=== PATIENT | male | born 1970 | race Asian ===

== ENCOUNTER 2019-05-30 22:18 | Emergency (ER) | payer OTHER ==
[2019-05-30 22:22] VITALS: BP 121/74; PULSE 100; TEMP 98.5; BMI 29.9
[2019-05-30] MEDS ORDERED: SODIUM CHLORIDE 1,000 ML IV STA ×2 (22:27→23:18)
--- NOTE | 2019-05-30 22:46 | PDOC ---
Documentation entered by Lara Rodas SCRIBE, acting as scribe for Cayetano Arellano MD. Cayetano Arellano MD: This documentation has been prepared by the Clark chopra Xhesika, SCRIBE, under my direction and personally reviewed by me in its entirety. I confirm that the documentation accurately reflects all work, treatment, procedures, and medical decision making performed by me. History of Present Illness - General Chief Complaint: Diarrhea Stated Complaint: DIARRHEA History Source: Patient Exam Limitations: No Limitations - History of Present Illness Initial Comments: 05/30/19 22:39 The patient is a 48 year old male, [employer] Employee, with a significant PMH of Asthma, CAD s/p 1 stent (2000), HTN, diabetes, hypercholesterolemia, [place] who presents to the emergency department for watery diarrhea x 3 days. Patient notes he went to [facility] [place] on [place] and was told to drink fluids. Patient notes his diarrhea is worse in the evening, and is associated with gassy stomach and belching. Patient notes he has been drinking a lot of fluids and only had chicken noodle soup today. Patient notes he has been taking imodium since the onset of his symptoms, with no relief (last taken this afternoon). Patient notes paternal family history of DM. The patient denies chest pain, shortness of breath, headache and dizziness. Denies fever, chills, cough, nausea, vomiting, and constipation. Denies dysuria , frequency, urgency and hematuria. Allergies: cefazolin Social history: Former smoker (quit 8 months ago) 05/30/19 23:40 Physical exam: Alert and oriented, well-developed well-nourished, no acute distress, cheerful and cooperative Afebrile, vital signs normal HEENT clear Neck supple without bruit mass or nodes Chest clear, full breath sounds bilaterally, no wheezes rales or rhonchi S1-S2 normal without murmur rub or gallop pulses full and symmetric no JVD or edema no bruits Abdomen nondistended. Bowel sounds normal. Soft without mass tenderness or organomegaly Extremities no CCE Skin clear, no rash, adequate turgor and wet mucous membranes Neurological intact Impression: Middle-aged man with significant past medical history including non- insulin-dependent diabetes, high blood pressure, and elevated cholesterol, has had watery diarrhea, without bloody stool or melena, x3 to 4 days. He has been drinking p.o. fluids but not eating solid foods. He has had no abdominal pain and no vomiting. Findings are consistent with a viral gastroenteritis, but probably more severe because of the patient's underlying diabetes. Plan: CBC and chemistries, IV hydration and observation. Further evaluation and treatment depending on results. Past History - Past Medical History Allergies/Adverse Reactions: Allergies Allergy/AdvReac Type Severity Reaction Status Date / Time cefazolin Allergy Verified 05/22/16 23:41 Home Medications: Ambulatory Orders Atorvastatin Ca [Lipitor] 80 mg PO DAILY 03/12/14 Acetaminophen [Tylenol] 650 mg PO QID PRN 04/08/16 Aspirin [ASA -] 81 mg PO DAILY 04/08/16 Carvedilol [Coreg -] 25 mg PO BID 04/08/16 Clopidogrel Bisulfate [Plavix -] 75 mg PO DAILY 04/08/16 metFORMIN HCL [Glucophage -] 1,000 mg PO BID 04/08/16 Glimepiride 2 mg PO DAILY #30 tablet 04/12/16 Empagliflozin [Jardiance] 10 mg PO DAILY 05/30/19 Ezetimibe 10 mg PO DAILY 05/30/19 Hydrochlorothiazide 12.5 mg PO DAILY 05/30/19 Irbesartan/Hydrochlorothiazide [Irbesartan-Hctz 300-12.5 mg Tb] 1 each PO DAILY 05/30/19 Nifedipine ER [Procardia Xl -] 90 mg PO DAILY 05/30/19 Asthma: Yes Cardiac Disorders: Yes (stent 2000) Diabetes: Yes GI Disorders: Yes (pancreatitis) HTN: Yes Hypercholesterolemia: Yes - Surgical History Cardiac Surgery: Yes (stent) - Psycho Social/Smoking Cessation Hx Smoking History: Current every day smoker Have you smoked in the past 12 months: No Number of Cigarettes Smoked Daily: 8 'Breaking Loose' booklet given: 03/12/14 Hx Alcohol Use: No Drug/Substance Use Hx: No Substance Use Type: None Hx Substance Use Treatment: No Review of Systems - Review of Systems Able to Perform ROS?: Yes Comments:: 05/30/19 22:41 GENERAL/CONSTITUTIONAL: No fever or chills. No weakness. HEAD, EYES, EARS, NOSE AND THROAT: No change in vision. No ear pain or discharge. No sore throat. CARDIOVASCULAR: No chest pain or shortness of breath. RESPIRATORY: No cough, wheezing, or hemoptysis. GASTROINTESTINAL: No nausea, vomiting, or constipation. +diarrhea. + gassy stomach. +belching. GENITOURINARY: No dysuria, frequency, or change in urination. MUSCULOSKELETAL: No joint or muscle swelling or pain. No neck or back pain. SKIN: No rash NEUROLOGIC: No headache, vertigo, loss of consciousness, or change in strength/ sensation. ENDOCRINE: No increased thirst. No abnormal weight change. HEMATOLOGIC/LYMPHATIC: No anemia, easy bleeding, or history of blood clots. ALLERGIC/IMMUNOLOGIC: No hives or skin allergy. ED Treatment Course - LABORATORY CBC & Chemistry Diagram: 05/30/19 22:38 05/30/19 22:38 Medical Decision Making - Medical Decision Making 05/30/19 23:43 Labs are significant for white count of 18.3, H&H of 16 and 47, BUN/creatinine of 22 and 1.3, and glucose of 174. The patient does not appear to be septic despite the high white count, is probably due to dehydration. His abdomen remains soft and nontender, and he has had no further diarrhea since presenting to the emergency room. 2 L of IV fluids administered. Improved, taking p.o. well, no further diarrhea , abdomen soft nontender. Discharged in no pain or other distress for close follow-up as directed. Discharge - Discharge Information Problems reviewed: Yes Clinical Impression/Diagnosis: Viral gastroenteritis Condition: Improved Disposition: HOME - Admission No - Follow up/Referral - Patient Discharge Instructions Patient Printed Discharge Instructions: DI for Viral Gastroenteritis -- Adult, DI for Diarrhea and Traveler's Diarrhea -- Adult Additional Instructions: Return to ER if symptoms are worse, especially if there is fever, abdominal pain , vomiting, lightheadedness/dizziness. Otherwise follow-up primary physician. Continue Imodium and stay well-hydrated. Light diet until diarrhea resolves. - Post Discharge Activity Work/Back to School Note: Back to Work
[2019-05-30 22:58] LABS: BASO % 0.6 % (0-2.0); EOS % 4.2 % (0-4.5); HEMATOCRIT 47.9 % (35.4-49); HEMOGLOBIN 16.1 GM/dl (11.7-16.9); LYMPH % 9.9 % (8-40); MCH 27.9 pg (25.7-33.7); MCHC 33.7 g/dl (32.0-35.9); MEAN CELL VOLUME 82.8 fl (80-96); MEAN PLT VOLUME 8.2 fl (7.5-11.1); NEUT % 79.3 % (42.8-82.8); PLATELET COUNT 356 K/MM3 (134-434); RBC 5.79 M/mm3 (4.00-5.60); RDW 13.5 % (11.9-15.9); WHITE BLOOD COUNT 18.3 K/mm3 (4.0-10.8)
[2019-05-30 23:04] LABS: ALBUMIN 4.4 g/dl (3.4-5.0); BILIRUBIN,TOTAL 1.1 mg/dl (0.2-1); CALCIUM 9.8 mg/dl (8.5-10); CREATININE 1.3 mg/dl (0.55-1.3); POTASSIUM 3.6 mmol/L (3.5-5.1); TOT PROT 7.5 g/dl (6.4-8.2)
== END 2019-05-31 00:31 | disposition home or self-care (01) ==
LOC: FER 22:18
PROC: 3E0337Z Introduction of Electrolytic and Water Balance Substance into Peripheral Vein, Percutaneous Approach (ICD-10-PCS; principal; 2019-05-30)
DX: A08.4 Viral intestinal infection, unspecified (principal); Z88.8 Allergy status to other drugs, medicaments and biological substances; J45.909 Unspecified asthma, uncomplicated; I25.10 Atherosclerotic heart disease of native coronary artery without angina pectoris; I10 Essential (primary) hypertension; E11.9 Type 2 diabetes mellitus without complications; E78.00 Pure hypercholesterolemia, unspecified; I25.2 Old myocardial infarction
CPT/HCPCS: 36415; 80053; 85025; 99283-25; J7030

== ENCOUNTER 2021-08-12 16:58 | Emergency (ER) | payer BC | END 2021-08-12 18:58 | disposition home or self-care (01) | LOC: JVIRT 16:58 | DX: Z11.52 Encounter for screening for COVID-19 (principal) | CPT/HCPCS: 87804; C9803; Q3014-GT; U0003; U0005 ==

== ENCOUNTER 2024-03-23 05:08 | Emergency (ER) | payer BC ==
[2024-03-23 05:18] VITALS: BMI 24.1
[2024-03-23] MEDS ORDERED: MAGNESIUM SULFATE IN WATER 2 GM/50 ML IVPB IVPB ONE (05:24)
[2024-03-23] MEDS ORDERED: DEXAMETHASONE SOD PHOSPHATE 10 MG/1 ML VIAL ONE (05:24)
[2024-03-23] MEDS ORDERED: IPRATROPIUM BR 0.02% 0.5 MG/2.5 ML VIAL.NEB. NEB ONE (05:24)
[2024-03-23] MEDS: MAGNESIUM SULF 50% (8.12 MEQ/2 ML-1 GM VIAL) IVPB ONE (05:39)
[2024-03-23] MEDS: SODIUM CHLORIDE 0.9% 500 ML INFUS.BAG IV ONE (05:39)
[2024-03-23] MEDS: DEXAMETHASONE LIQUID 0.5 MG/5 ML PO ONE (05:39)
[2024-03-23] MEDS: IPRATROPIUM BR 0.02% 0.5 MG/2.5 ML VIAL.NEB. NEB ONE (05:39)
[2024-03-23 05:59] LABS: BASO % 1.2 % (0-2.0); EOS % 8.7 % (0-4.5); HEMOGLOBIN 15.3 GM/dL (11.7-16.9); LYMPH % 11.7 % (8-40); MCHC 33.2 g/dl (32.0-35.9); MEAN CELL VOLUME 84.5 fl (80-96); MEAN PLT VOLUME 7.7 fl (7.5-11.1); MONO % 8.7 % (3.8-10.2); NEUT % 69.7 % (42.8-82.8); PLATELET COUNT 324 10^3/uL (134-434); RBC 5.45 M/mm3 (4.00-5.60); RDW 14.3 % (11.9-15.9); WHITE BLOOD COUNT 11.8 K/mm3 (4.0-10.0)
[2024-03-23 06:01] LABS: VENOUS BASE EXCESS -4.5 mmol/L (-2-2); VENOUS O2 SATURATION 83.6 % (70-80); VENOUS PCO2 41.4 mmHg (38-52); VENOUS PH 7.327 (7.310-7.410)
[2024-03-23 06:36] LABS: INR 0.91 (0.83-1.09); PROTHROMBIN TIME (PATIENT) 10.3 SEC (9.7-13.0)
[2024-03-23 07:53] LABS: POTASSIUM 4.4 mmol/L (3.5-5.1)
[2024-03-23 07:57] LABS: ALBUMIN 3.4 g/dl (3.4-5.0); BLOOD UREA NITROGEN 14.7 mg/dL (7-18)
[2024-03-23 08:00] LABS: CREATININE 0.9 mg/dL (0.55-1.3)
[2024-03-23 08:02] LABS: BILIRUBIN,TOTAL 0.8 mg/dL (0.2-1); TOT PROT 6.4 g/dl (6.4-8.2)
[2024-03-23 08:35] VITALS: BP 143/93; PULSE 84; RESP 18; TEMP 97.7
== END 2024-03-23 08:48 | disposition home or self-care (01) ==
LOC: JER 05:08
PROC: 3E033GC Introduction of Other Therapeutic Substance into Peripheral Vein, Percutaneous Approach (ICD-10-PCS; principal; 2024-03-23)
PROC: 3E0F7GC Introduction of Other Therapeutic Substance into Respiratory Tract, Via Natural or Artificial Opening (ICD-10-PCS; 2024-03-23)
DX: R07.89 Other chest pain (principal); R06.02 Shortness of breath; R05.9 Cough, unspecified; J45.901 Unspecified asthma with (acute) exacerbation; Z20.822 Contact with and (suspected) exposure to COVID-19
CPT/HCPCS: 0241U-QW; 36415; 71045-TC-FY; 80053; 82465; 82803; 83718; 83721; 84478; 84484; 85025; 85610; 93005; 93010; 99285-25

== ENCOUNTER 2024-04-06 20:08 | Observation (INO) | payer BC ==
[2024-04-06] MEDS ORDERED: ONDANSETRON 4 MG/2 ML VIAL ONE (20:45)
[2024-04-06] MEDS ORDERED: ACETAMINOPHEN INJECTION 100 ML IVPB ONE (20:45)
[2024-04-06] MEDS: SODIUM CHLORIDE 0.9% 500 ML INFUS.BAG IV ONE ×2 (21:02→21:46)
[2024-04-06] MEDS: ACETAMINOPHEN 1000 MG/100 ML BAG IVPB ONE (21:02)
[2024-04-06] MEDS: ONDANSETRON 4 MG/2 ML VIAL IVPUSH ONE (21:02)
[2024-04-06 21:24] LABS: HEMATOCRIT 42.1 % (35.4-49); HEMOGLOBIN 13.9 GM/dL (11.7-16.9); MCH 28.2 pg (25.7-33.7); MEAN CELL VOLUME 85.4 fl (80-96); MEAN PLT VOLUME 8.1 fl (7.5-11.1); PLATELET COUNT 293 10^3/uL (134-434); RBC 4.93 M/mm3 (4.00-5.60); RDW 14.4 % (11.9-15.9); WHITE BLOOD COUNT 11.6 K/mm3 (4.0-10.0)
[2024-04-06 21:39] LABS: CHLORIDE 124 mmol/L (98-107); POTASSIUM 3.3 mmol/L (3.5-5.1); SODIUM 145 mmol/L (136-145)
[2024-04-06 21:42] LABS: ALBUMIN 1.5 g/dl (3.4-5.0); ANION GAP 10 mmol/L (4-13); BLOOD UREA NITROGEN 19.9 mg/dL (7-18); CO2 11 mmol/L (21-32); GLUCOSE,RANDOM 152 mg/dL (74-106)
[2024-04-06 21:45] LABS: CREATININE 0.8 mg/dL (0.55-1.3); PHOSPHOROUS 2.1 mg/dL (2.5-4.9); SGOT/AST 27 U/L (15-37); SGPT/ALT 18 U/L (13-61)
[2024-04-06 21:46] LABS: BILIRUBIN,TOTAL 0.4 mg/dL (0.2-1)
[2024-04-06 21:48] LABS: ALK PHOS 30 U/L (45-117)
[2024-04-06 21:54] LABS: ANISOCYTOSIS 1+; MACROCYTOSIS 0
[2024-04-06 22:26] LABS: LACTIC ACID 2.1 mmol/L (0.4-2.0)
[2024-04-06] MEDS: MAGNESIUM 1GM/D5W - 1 GM/100 ML IVPB IVPB ONE (22:26)
[2024-04-06] MEDS ORDERED: MAGNESIUM SULFATE IN WATER 2 GM/50 ML IVPB IVPB ONE (22:29)
[2024-04-06] MEDS ORDERED: POTASSIUM CHLORIDE ORAL LIQUID 20 MEQ/15 ML ONE (22:29)
[2024-04-06 22:37] LABS: CALCIUM < 5.0 mg/dL (8.5-10.1); MAGNESIUM 0.8 mg/dL (1.8-2.4)
[2024-04-06] MEDS: MAGNESIUM SULFATE IN WATER 2 GM/50 ML IVPB IVPB ONE (22:39)
[2024-04-06] MEDS: POTASSIUM CHLORIDE ORAL LIQUID 20 MEQ/15 ML PO ONE (22:39)
[2024-04-06] MEDS ORDERED: CALCIUM GLUCONATE 10% - 1,000 MG/10 ML VIAL ONE (23:28)
[2024-04-06] MEDS ORDERED: THIAMINE HCL 200 MG/2 ML VIAL ONE (23:28)
[2024-04-06] MEDS: CALCIUM GLUCONATE 10% - 1,000 MG/10 ML VIAL IVPB ONE (23:44)
[2024-04-06] MEDS: THIAMINE HCL 200 MG/2 ML VIAL IVPB ONE (23:44)
[2024-04-07 00:54] LABS: POTASSIUM 4.6 mmol/L (3.5-5.1)
[2024-04-07 00:56] LABS: BLOOD UREA NITROGEN 25.8 mg/dL (7-18)
[2024-04-07 00:59] LABS: CREATININE 1.3 mg/dL (0.55-1.3)
[2024-04-07 01:57] LABS: MAGNESIUM 2.2 mg/dL (1.8-2.4)
[2024-04-07 02:15] LABS: ALBUMIN 2.6 g/dl (3.4-5.0)
[2024-04-07] MEDS ORDERED: ONDANSETRON 4 MG/2 ML VIAL IVPUSH PRN (03:00)
[2024-04-07 03:40] LABS: EPI CELLS 5 /uL (0-25.1); HYALINE CASTS 1 /uL (0-3.1); PH,URINE 5.5 (5.0-8.0); URINE APPEARANCE CLEAR; URINE BACTERIA 1 /uL (0-1359); URINE BILIRUBIN NEGATIVE (NEGATIVE); URINE COLOR YELLOW; URINE GLUCOSE (UA) 3+ (NEGATIVE); URINE KETONE NEGATIVE (NEGATIVE); URINE LEUK ESTERASE NEGATIVE (NEGATIVE); URINE NITRITE NEGATIVE (NEGATIVE); URINE PROTEIN 2+ (NEGATIVE); URINE RBC 4 /uL (0-23.9); URINE UROBILINOGEN 0.2 mg/dL (0.2-1.0); URINE WBC 7 /uL (0-25.8)
[2024-04-07 04:42] VITALS: BMI 25.0
[2024-04-07] MEDS: BUDESONIDE/FORMETEROL FUMARATE 160/4.5 mcg INHALER IH SCH (06:29)
[2024-04-07] MEDS: INSULIN ASPART SLIDING SCALE (NOVOLOG) 1 VIAL SQ SCH (06:30)
[2024-04-07 06:59] VITALS: RESP 18
[2024-04-07] MEDS: CARVEDILOL 25 MG TABLET (FP) PO SCH (07:24)
[2024-04-07] MEDS: ALBUTEROL SO4 2.5/IPRATROPIUM 0.5 INH SOL 3 ML VIAL.NEB. NEB PRN (08:39)
[2024-04-07 09:06] LABS: BASO % 0.3 % (0-2.0); EOS % 0.4 % (0-4.5); HEMOGLOBIN 13.6 GM/dL (11.7-16.9); LYMPH % 9.4 % (8-40); MCH 28.7 pg (25.7-33.7); MCHC 33.9 g/dl (32.0-35.9); MEAN CELL VOLUME 84.5 fl (80-96); MEAN PLT VOLUME 7.9 fl (7.5-11.1); NEUT % 82.9 % (42.8-82.8); PLATELET COUNT 255 10^3/uL (134-434); RBC 4.74 M/mm3 (4.00-5.60); RDW 14.8 % (11.9-15.9); WHITE BLOOD COUNT 4.9 K/mm3 (4.0-10.0)
[2024-04-07 09:19] LABS: POTASSIUM 4.9 mmol/L (3.5-5.1)
[2024-04-07] MEDS: ASPIRIN 81 MG CHEWABLE TABLETS PO SCH (09:21)
[2024-04-07] MEDS: SODIUM CHLORIDE 0.45%/POT 20 MEQ/1,000 ML INFUS.BAG IV SCH (09:23)
[2024-04-07 09:25] LABS: BLOOD UREA NITROGEN 21.4 mg/dL (7-18); CALCIUM 8.2 mg/dL (8.5-10.1)
[2024-04-07 09:26] LABS: MAGNESIUM 1.9 mg/dL (1.8-2.4)
[2024-04-07 09:29] LABS: CREATININE 1.1 mg/dL (0.55-1.3); PHOSPHOROUS 2.6 mg/dL (2.5-4.9)
[2024-04-07] MEDS ORDERED: CLOPIDOGREL BISULFATE 75 MG TABLET (FP) PO SCH (10:00)
[2024-04-07] MEDS: EMPAGLIFLOZIN (JARDIANCE) 10 MG TABLET PO SCH (10:50)
[2024-04-07] MEDS: EZETIMIBE 10 MG TABLET (FP) PO SCH (10:50)
[2024-04-07] MEDS ORDERED: INSULIN (NOVOLOG) ASPART 100 UNITS/ML 10ML VIAL SQ SCH (11:00)
[2024-04-07] MEDS ORDERED: HEPARIN NA (PORCINE) 5,000 UNITS/ML 1ML VIAL SQ SCH (14:00)
[2024-04-07] MEDS: INSULIN (NOVOLOG) ASPART 100 UNITS/ML 10ML VIAL SQ SCH (16:43)
[2024-04-07] MEDS: ATORVASTATIN CA 80 MG TABLET (FP) PO SCH (21:10)
[2024-04-08] MEDS: EMPAGLIFLOZIN (JARDIANCE) 10 MG TABLET PO SCH (06:21)
[2024-04-08 08:35] LABS: BASO % 0.4 % (0-2.0); HEMATOCRIT 38.9 % (35.4-49); HEMOGLOBIN 13.5 GM/dL (11.7-16.9); LYMPH % 16.4 % (8-40); MCH 28.7 pg (25.7-33.7); MCHC 34.6 g/dl (32.0-35.9); MEAN CELL VOLUME 82.9 fl (80-96); MEAN PLT VOLUME 7.7 fl (7.5-11.1); MONO % 13.9 % (3.8-10.2); NEUT % 65.3 % (42.8-82.8); PLATELET COUNT 275 10^3/uL (134-434); RBC 4.69 M/mm3 (4.00-5.60); RDW 14.4 % (11.9-15.9); WHITE BLOOD COUNT 5.3 K/mm3 (4.0-10.0)
[2024-04-08 08:52] LABS: POTASSIUM 4.1 mmol/L (3.5-5.1)
[2024-04-08 08:58] LABS: CALCIUM 8.1 mg/dL (8.5-10.1)
[2024-04-08 08:59] LABS: ALBUMIN 2.7 g/dl (3.4-5.0); BLOOD UREA NITROGEN 11.5 mg/dL (7-18); MAGNESIUM 1.8 mg/dL (1.8-2.4)
[2024-04-08 09:02] LABS: BILIRUBIN,TOTAL 0.6 mg/dL (0.2-1); CREATININE 0.7 mg/dL (0.55-1.3); PHOSPHOROUS 2.5 mg/dL (2.5-4.9)
[2024-04-08 09:05] LABS: TOT PROT 5.2 g/dl (6.4-8.2)
[2024-04-08 14:37] VITALS: BP 122/90; PULSE 101; TEMP 99
== END 2024-04-08 14:52 | disposition home or self-care (01) ==
LOC: JER 20:08 → JERBED 23:20 → J7W 04-07 03:44
PROVIDERS: ADMIT Internal Medicine; ATTEND Internal Medicine
PROC: 3E033NZ Introduction of Analgesics, Hypnotics, Sedatives into Peripheral Vein, Percutaneous Approach (ICD-10-PCS; principal; 2024-04-06)
PROC: 3E033GC Introduction of Other Therapeutic Substance into Peripheral Vein, Percutaneous Approach (ICD-10-PCS; 2024-04-06)
PROC: 3E0F7GC Introduction of Other Therapeutic Substance into Respiratory Tract, Via Natural or Artificial Opening (ICD-10-PCS; 2024-04-06)
PROC: 3E0337Z Introduction of Electrolytic and Water Balance Substance into Peripheral Vein, Percutaneous Approach (ICD-10-PCS; 2024-04-06)
DX: K52.9 Noninfective gastroenteritis and colitis, unspecified (principal); I11.9 Hypertensive heart disease without heart failure; E78.5 Hyperlipidemia, unspecified; E87.8 Other disorders of electrolyte and fluid balance, not elsewhere classified; J45.909 Unspecified asthma, uncomplicated; E11.9 Type 2 diabetes mellitus without complications; I25.10 Atherosclerotic heart disease of native coronary artery without angina pectoris; K86.1 Other chronic pancreatitis; Z88.8 Allergy status to other drugs, medicaments and biological substances
CPT/HCPCS: 0241U-QW; 36415; 71045-TC-FY; 80048; 80053; 81003; 82040; 82962; 83605; 83690; 83735; 84100; 84484; 85025; 87086; 93005; 93010; 93308; 94640; 99285-25; G0378; J0131; J3480